=== PATIENT | female | born 1995 | race Caucasian/White ===

== ENCOUNTER 2019-11-19 16:03 | Emergency (ER) | payer MEDICAID, SELFPAY ==
[2019-11-19 16:08] VITALS: BP 142/77; PULSE 77; RESP 18; TEMP 36.7; O2SAT 98
[2019-11-19] MEDS: Dexamethasone 4 MG TAB 8 MG PO (16:22)
--- NOTE | 2019-11-19 17:02 | ED.GENADUL_ITS ---
Discharge Plan Disposition Patient Disposition: HOME Condition: Stable Discharge Details Chief Complaint: Sorethroat Clinical Impression: Pharyngitis Primary Care Provider: Emily Mccoy ED Provider: Ricardo Caputo Home Meds and New Rx's Prescriptions: No Action prednisone 20 MG tablet 20 mg PO BID Qty: 10 RF: 0 albuterol sulfate [ProAir HFA] 200 PUFF HFA aerosol inhaler 1 inh Inhalation Q2H PRN PRNQty: 1 RF: 0 norethindrone-e.estradiol-iron [11/15 (28)] 1 EACH tablet 1 tab PO DAILY RF: 0 prednisone 20 MG tablet 40 mg PO DAILY Qty: 4 RF: 0 Discharge Instructions Instructions: Pharyngitis (ED) Additional Instructions: 1. Drink plenty of fluids. 2. Continue all medications as prescribed. 3. Acetaminophen 1000mg every 4 hours (up to 5 time a day) and/or ibuprofen 600mg every 6 hours as needed for fever or pain. Return to the Emergency Department (ED) if your condition worsens, does not improve as expected, or for ANY other concerns. Specifically, return if you have new or uncontrolled pain, worsening fever, difficulty breathing, vomiting, or are unable to drink fluids. Discharge Data Discharge Date/Time-TO BE ENTERED AT DEPARTURE: 11/19/19 16:26 Medical Decision Making 24-year-old who presents with 2 days worsening bilateral throat pain. Nonfocal exam except for posterior pharyngeal erythema, bilateral tonsillar exudate, and otherwise no significant soft tissue swelling or evidence of abscess. Reviewed lack of efficacy of oral antibiotics for uncomplicated pharyngitis with side effects exceeding benefit. Treated in the ED with a single dose of oral Decadron discharge with a plan for OTC analgesia, aggressive hydration, and outpatient follow-up as needed. Given usual and customary return instructions prior to discharge. Medical Records Medical records reviewed: Yes I reviewed the patient's medical records. HPI 24-year-old woman with an unremarkable past medical history presents with new onset of throat pain. She denies associated fever/chills, URI, congestion, cough. She tried to look into her hypopharynx and thought she saw white spots. Otherwise, she has good oral intake and has had no difficulty with swallowing liquids. She denies any dyspnea. General Date/Time Provider Initiated Documentation: 11/19/19 16:16 . Related Data Home Medications Medication Instructions Recorded Confirmed albuterol sulfate [ProAir HFA] 1 inh INHALATION Q2H PRN PRN #1 inh 01/09/16 07/24/17 prednisone 20 mg PO BID #10 tablet 01/09/16 07/24/17 norethindrone-e.estradiol-iron 1 tab PO DAILY 07/01/16 07/24/17 [June FE 11/15 ()] prednisone 40 mg PO DAILY #4 tablet 07/24/17 Previous Rx's Medication Instructions Recorded albuterol sulfate [ProAir HFA] 1 inh INHALATION Q2H PRN PRN #1 inh 01/09/16 prednisone 20 mg PO BID #10 tablet 01/09/16 prednisone 40 mg PO DAILY #4 tablet 07/24/17 Allergies Allergy/AdvReac Type Severity Reaction Status Date / Time No Known Allergies Allergy Unverified 07/24/17 20:29 General Stated Complaint: Sorethroat ARMEN: 4 Review of Systems All systems reviewed & are unremarkable except as noted in HPI and below PFSH Social History Smoking/Tobacco Use Status: Never Alcohol Intake: never Drug use: Never Substance use type: does not use Do you feel safe at home: Yes Do you feel safe in your relationship?: Yes Exam Narrative Exam Narrative: Nursing note and vital signs have been reviewed and noted. GENERAL: alert, active, no acute distress, well -hydrated, well-nourished HEENT: atraumatic/normocephalic, PERRLA, EOMI, conjunctiva clear, external ears/canals normal, nasal mucosa normal; hypopharynx with bilateral tonsillar exudate. No significant soft tissue swelling. Uvula is midline. NECK: supple, full range of motion; no anterior cervical adenopathy. CARDIOVASCULAR: nl pulses, no edema PULMONARY: nl effort, no audible wheezing or stridor ABDOMEN: non-distended EXTREMITY: normal muscle tone, all joints with FROM, no deformity NUERO: normal mentation, moving all extremities, normal stance and gait, PSYCH: alert and oriented SKIN: no new rashes or lesions Course Vital Signs Vital signs: Vital Signs Temperature 98.1 F 11/19/19 16:08 Pulse 77 11/19/19 16:08 Respiratory Rate 18 11/19/19 16:08 Blood Pressure 142/77 H 11/19/19 16:08 Pulse Oximetry 98 11/19/19 16:08 Temperature 98.1 F 11/19/19 16:08 Temperature Source Skin 11/19/19 16:08 Pulse 77 11/19/19 16:08 Respiratory Rate 18 11/19/19 16:08 Respiratory Effort Non-Labored 11/19/19 16:10 Blood Pressure 142/77 H 11/19/19 16:08 Blood Pressure Position Sitting 11/19/19 16:08 Pulse Oximetry 98 11/19/19 16:08 Oxygen Delivery Method Room Air 11/19/19 16:08 Oxygen Flow Rate 0 11/19/19 16:08
== END 2019-11-19 16:26 | disposition home or self-care (01) ==
PROVIDERS: Emergency Provider Emergency Medicine
DX: J02.9 Acute pharyngitis, unspecified (principal)
CPT/HCPCS: 99283; J8540

== ENCOUNTER 2020-01-08 09:14 | Emergency (ER) | payer MEDICAID, SELFPAY ==
[2020-01-08 09:18] VITALS: BP 158/96; PULSE 88; RESP 18; TEMP 36.4; O2SAT 98
--- NOTE | 2020-01-08 09:32 | W.ED.GENAD ---
Discharge Plan Disposition Patient Disposition: HOME Condition: Improving Discharge Details Chief Complaint: GenMedical Clinical Impression: Headache Primary Care Provider: Emily Mccoy ED Provider: Natanael Bonilla Home Meds and New Rx's Prescriptions: Continued albuterol sulfate [ProAir HFA] 200 PUFF HFA aerosol inhaler 1 inh Inhalation Q2H PRN PRNQty: 1 RF: 0 Discharge Instructions Instructions: General Headache (ED) Additional Instructions: Home to rest today. Small, frequent sips of fluids so that you maintain good hydration. Continue your regular medications. Return to the ER for any acute concern. Medical Decision Making 24-year-old female presents from home with onset of headache this morning associated with right arm tingling. 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 She states that she is took Tylenol and both the headache and sensation of right arm tingling are improving. There was no difficulty with speech. She has no motor deficits. She has not had a fever, stiff neck, no fall or injury. Her neurologic examination is normal. Patient given ibuprofen and Zofran, referred for noncontrast CT scan of the head. The CT images are unremarkable. After period of observation over approximately 90 minutes patient states resolution of symptoms. She is stable and improved. Most consistent with migraine type cephalgia. She is stable and appropriate to discharge to home at this time. HPI General Mode of arrival: ambulatory. Date/Time Provider Initiated Documentation: 01/08/20 09:14. Limitations to Documentation: no limitations. Information obtained by: patient. History of Present Illness 24 year old F presents to the emergency department with the chief complaint of Headache and right arm tingling, described as similar to prior episodes, and is localized to the head, right and upper extremity. Patient started experiencing this minute(s) and it has been other (Improving). No relieving factors improve symptom(s), No exacerbating factors reported . Patient notes denies fever/chills, nausea/vomiting, syncope and weakness. Patient did receive the following treatments prior to arrival, other (Acetaminophen) Related Data Home Medications Medication Instructions Recorded Confirmed albuterol sulfate [ProAir HFA] 1 inh INHALATION Q2H PRN PRN #1 inh 01/09/16 01/08/20 Previous Rx's Medication Instructions Recorded albuterol sulfate [ProAir HFA] 1 inh INHALATION Q2H PRN PRN #1 inh 01/09/16 Allergies Allergy/AdvReac Type Severity Reaction Status Date / Time No Known Allergies Allergy Unverified 01/08/20 09:22 General Stated Complaint: GenMedical ARMEN: 3 Review of Systems Narrative: 6 systems reviewed and otherwise negative [facility] Social History Smoking/Tobacco Use Status: Never Alcohol Intake: never Drug use: Never Substance use type: does not use Do you feel safe at home: Yes Do you feel safe in your relationship?: Yes Exam Narrative Exam Narrative: GEN: awake, alert, oriented 3. Pleasant, well groomed, interactive. HEAD: Normocephalic, atraumatic ENT: Mucous membranes moist, oropharynx unremarkable, External ear exam unremarkable EYES: PERRL, EOMI NECK: Full ROM, no ENDER, no menigismus CHEST/RESP: Nontender, clear to auscultation bilateral, no wheeze/rhonchi/rales CARDIOVASCULAR: RRR, no murmur, rub johnnie. 2+ Rad pulse bilateral EXT: Full ROM, no edema, no rash Neuro: Grossly normal neurologic exam, conversant, interactive. Cranial nerves II through XII intact. Wmifdy-or-vubt intact. Romberg negative. Psych: Speech fluent, thoughts congruent, affect normal Course Vital Signs Vital signs: Vital Signs Temperature 36.4 C L 01/08/20 09:18 Pulse 88 01/08/20 09:18 Respiratory Rate 18 01/08/20 09:18 Blood Pressure 158/96 H 01/08/20 09:18 Pulse Oximetry 98 01/08/20 09:18 Temperature 36.4 C L 01/08/20 09:18 Temperature Source Oral 01/08/20 09:18 Pulse 88 01/08/20 09:18 Respiratory Rate 18 01/08/20 09:18 Respiratory Effort Non-Labored 01/08/20 09:21 Blood Pressure 158/96 H 01/08/20 09:18 Blood Pressure Position Sitting 01/08/20 09:18 Pulse Oximetry 98 01/08/20 09:18 Oxygen Delivery Method Room Air 01/08/20 09:18 Oxygen Flow Rate 0 01/08/20 09:18 Pain Level 7 01/08/20 09:18
[2020-01-08] MEDS: Ibuprofen 800 MG TAB PO (09:39)
[2020-01-08] MEDS: Ondansetron O.D.T. 4 MG TABEF PO (09:39)
--- NOTE | 2020-01-08 09:50 | DI.CT_ITS ---
EXAM: CT HEAD WO CLINICAL HISTORY: headache. TECHNIQUE: Imaging Protocol: Axial computed tomography images with coronal and sagittal reformatted images were created and reviewed COMPARISON: HEAD WITHOUT CONTRAST from 10/08/2016 FINDINGS: Ventricles and Extra axial spaces: Normal in size and morphology for the patient's age. Hemorrhage: None. Cerebral parenchyma: Normal. Midline shift: None. Brainstem/Cerebellum: Normal. Calvarium: Normal. Visualized Paranasal sinuses/Mastoids: Clear. Soft Tissues: Unremarkable. IMPRESSION: No acute intracranial process. RADIATION DOSE DELIVERED: DATA REPOSITORY: All CT scans at this facility are submitted to the National Radiology Data Registry (NRDR) Dose Index Registry (DIR) with the [employer] ([employer]). RADIATION OPTIMIZATION: All CT scans at this facility use at least one of these dose optimization te chniques: automated exposure control; mA and/or kV adjustment per patient size (includes targeted exa ms where dose is matched to clinical indication); or iterative reconstruction.
[2020-01-08 10:17] VITALS: BP 127/82; PULSE 80; RESP 18; TEMP 36.6; O2SAT 100
--- NOTE | 2020-01-08 10:41 | DI.VRAD_ITS ---
PROCEDURE INFORMATION: Exam: CT Head Without Contrast Exam date and time: 01/08/2020 9:53 AM Age: 24 years old Clinical indication: Other: Headache TECHNIQUE: Imaging protocol: Computed tomography of the head without contrast. Radiation optimization: All CT scans at this facility use at least one of these dose optimization techniques: automated exposure control; mA and/or kV adjustment per patient size (includes targeted exams where dose is matched to clinical indication); or iterative reconstruction. COMPARISON: CT HEAD WITHOUT CONTRAST 10/09/2016 12:04 AM FINDINGS: Brain: Normal. No hemorrhage. Unremarkable white matter. No mass effect. Ventricles: Normal. No ventriculomegaly. Bones/joints: Unremarkable. No acute fracture. Sinuses: Visualized sinuses are unremarkable. No fluid levels. Mastoid air cells: Visualized mastoid air cells are well aerated. Soft tissues: Unremarkable. IMPRESSION: No acute intracranial abnormality. Dictated and Authenticated by: Darron eDan MD. Ordering:FEROZ Santoyo MD
== END 2020-01-08 11:03 | disposition home or self-care (01) ==
PROVIDERS: Emergency Provider Emergency Medicine
DX: R51 Headache (principal); R20.2 Paresthesia of skin
CPT/HCPCS: 99284; 70450

== ENCOUNTER 2024-09-28 16:49 | Outpatient (REF) | payer MEDICAID, SELFPAY ==
[2024-09-28 21:46] LABS: Bilirubin Negative (Negative); Blood Small (Negative); Clarity Sl Cloudy (Clear); Glucose Negative (Negative); Ketones Negative (Negative); Leukocyte Esterase Trace (Negative); Nitrite Positive (Negative); Specific Gravity 1.015 (1.005-1.025); Urobilinogen 0.2 mg/dL (Up to 0.2)
[2024-09-28 21:56] LABS: Bacteria Moderate HPF (Negative); C & S Indicated? No; Casts Negative LPF (Negative); Crystals Negative HPF (Negative); Epithelial Cells Few HPF (Negative); Mucus Negative (Negative); RBC 0-2 HPF (0-2)
== END 2024-09-28 16:50 | disposition home or self-care (01) ==
LOC: LBN 16:49
PROVIDERS: Visit Provider Nurse Practitioner Family
DX: R39.9 Unspecified symptoms and signs involving the genitourinary system (principal)
CPT/HCPCS: 81003; 81015

== ENCOUNTER 2025-02-21 16:50 | Outpatient (REF) | payer MEDICAID, SELFPAY ==
[2025-02-21 21:14] LABS: Bilirubin Negative (Negative); Blood Trace-lysed (Negative); Clarity Sl Cloudy (Clear); Glucose Negative (Negative); Ketones Negative (Negative); Leukocyte Esterase Large (Negative); Nitrite Positive (Negative); Urobilinogen 0.2 mg/dL (Up to 0.2); pH 6.5 (5-8)
[2025-02-21 21:29] LABS: C & S Indicated? Yes; WBC >50 HPF (0-5)
== END 2025-02-21 16:51 | disposition home or self-care (01) ==
LOC: LBN 16:50
PROVIDERS: Visit Provider Nurse Practitioner Family
DX: R39.9 Unspecified symptoms and signs involving the genitourinary system (principal)
CPT/HCPCS: 87077; 81003; 81015; 87086; 87186

== ENCOUNTER → 2025-09-30 17:59 | Outpatient (CLI) | payer OTHER, MEDICAID, SELFPAY ==
--- NOTE | 2025-09-30 18:00 | DI.RAD_ITS ---
Exam(s) XR CHEST 2V PA LATERAL EXAM: XR CHEST 2V PA LATERAL CLINICAL HISTORY: eval pna. TECHNIQUE: 2D digital imaging was performed. COMPARISON: CR CHEST 2 VIEWS PA,LAT from 07/01/2016 FINDINGS: 2 views: Heart size is normal. The mediastinum is not widened. Lungs are clear. No infiltrates nor pleural effusions. IMPRESSION: No acute pulmonary findings. DATA REPOSITORY: RADIATION DOSE DELIVERED:
== END ==
PROVIDERS: Visit Provider Nurse Practitioner Family
DX: R05.9 Cough, unspecified (principal)
CPT/HCPCS: 71046